=== PATIENT | female | born 2000 | race Caucasian/White ===

== ENCOUNTER 2019-03-11 23:05 | Emergency (ER) | payer MEDICAID ==
[~2019-03-11] VITALS: Ht 177.8 cm; Wt 77.3 kg
[2019-03-11 23:16] VITALS: Ht 177.8 cm; Wt 77.3 kg
[2019-03-11] MEDS ORDERED: SULFAMETHOXAZOL1 TA3 PO (23:19)
[2019-03-11] MEDS ORDERED: FLOVENT HFA 22012 GM (23:19)
[2019-03-11] MEDS ORDERED: VITAMIN D250000 UNIT PO (23:19)
[2019-03-11] MEDS ORDERED: CIPRO500 MG PO (23:19)
[2019-03-11] MEDS ORDERED: ALBUTEROL SULF8.5 GM (23:20)
[2019-03-12 00:39] VITALS: BP 118/67
== END 2019-03-12 00:39 | disposition home or self-care (01) ==
LOC: D.ER 23:05
DX: S60.211A Contusion of right wrist, initial encounter (principal); W22.8XXA Striking against or struck by other objects, initial encounter; Y93.89 Activity, other specified; Y92.019 Unspecified place in single-family (private) house as the place of occurrence of the external cause; M67.431 Ganglion, right wrist